=== PATIENT | female | born 1970 | race Hispanic/Latino ===

== ENCOUNTER 2024-05-06 20:57 | Inpatient (IN) | payer SELFPAY ==
[2024-05-06] MEDS ORDERED: Orphenadrine Citrate 60 MG/2 ML VIAL ONE (22:11)
[2024-05-06] MEDS ORDERED: Ketorolac Tromethamine 30 MG (1 mL) VIAL ONE (22:11)
[2024-05-07] MEDS ORDERED: Ondansetron PF 4 MG/2 ML Vial IVP PRN (00:06)
[2024-05-07] MEDS ORDERED: Acetaminophen 325 MG TAB PO PRN (00:06)
[2024-05-07] MEDS ORDERED: Morphine 2 MG/ML VIAL SLOW IVP PRN (00:09)
[2024-05-07] MEDS ORDERED: Dextrose 5% in Water 1,000 ML IV PRN (00:11)
[2024-05-07] MEDS ORDERED: Glucagon 1 MG/ML KIT IM PRN (00:11)
[2024-05-07] MEDS ORDERED: Dextrose 50% Abboject 50 ML SYRINGE SLOW IVP PRN (00:11)
[2024-05-07] MEDS ORDERED: HumaLOG 300 UNITS/3 ML VIAL SC PRN ×2 (00:11)
[2024-05-07 02:21] VITALS: BMI 24.4
[2024-05-07] MEDS: Lidocaine 4% Patch TD SCH (02:37)
[2024-05-07] MEDS: predniSONE 20 MG TAB PO SCH ×2 (02:37→08:33)
[2024-05-07] MEDS: Insulin Lispro 100 UNIT/ML 10 ML VIAL SC PRN ×2 (06:38→21:15)
[2024-05-07 06:49] LABS: #Basophils 0.03 10x3/uL (0.0-0.2); %Basophils 0.4 % (0.0-1.0); %Eosinophils 0.5 % (0.0-10.0); %Lymphocytes 21.5 % (21.0-51.0); %Monocytes 4.2 % (0.0-10.0); %Neutrophils 72.9 % (42.0-75.0); Hematocrit 39.4 % (36.0-47.0); Hemoglobin 13.3 g/dL (12.0-16.0); Mean Corpuscular HGB CONC 33.8 g/dL (32.0-36.0); Mean Corpuscular Hemoglobin 29.3 pg (27.0-31.0); Mean Corpuscular Volume 86.8 fL (78.0-98.0); Platelet Count 288 10x3/uL (130-400); RBC Distribution Width 12.6 % (11.5-14.5); Red Blood Cell (RBC) Count 4.54 mill/uL (4.20-5.40)
[2024-05-07 07:04] LABS: Anion Gap 12 mmol/L (10-20); BUN (Urea Nitrogen) 20 mg/dL (9.8-20.1); Calc. Creatinine Clearance 86 mL/min (70-130); Calcium 8.9 mg/dL (7.8-10.44); Carbon Dioxide 24 mmol/L (22-29); Chloride 102 mmol/L (98-107); Estimated GFR 105; Glucose 347 mg/dL (70-105); Potassium 4.5 mmol/L (3.5-5.1); Sodium 133 mmol/L (136-145)
[2024-05-07] MEDS: metFORMIN 500 MG TAB PO SCH (08:33)
[2024-05-07] MEDS: Heparin 5,000 UNITS/ML VIAL SC SCH (08:33)
[2024-05-07] MEDS: glipiZIDE 10 MG TAB PO SCH (08:33)
[2024-05-07] MEDS: Insulin Glargine 30 UNITS/0.3 ML VIAL SC SCH (08:33)
[2024-05-07 09:31] LABS: Bilirubin Negative (Negative); Blood, Urine Negative (Negative); Clarity Clear (Clear); Glucose, Urine (Dipstick) Greater than 1000 mg/dL (Negative); Ketone, Urine 20 mg/dL (Negative); Leukocyte Negative Leu/uL (Negative); Nitrite Negative (Negative); Protein, Urine (Dipstick) Negative (Neg-Trace); Specific Gravity, Urine 1.047 (1.002-1.036); Urobilinogen Normal mg/dL (Less than 2); pH, Urine 5.5 (5.0-9.0)
[2024-05-07 09:34] LABS: Bacteria/HPF Rare-Few HPF (None Seen)
[2024-05-07] MEDS: traMADol HCl 50 MG TAB PO PRN (09:54)
[2024-05-07] MEDS: Transdermal Patch Removal TOP SCH (11:39)
[2024-05-07] MEDS: HYDROcodone/Acetaminophen 5/325 mg Tablet PO PRN (17:14)
[2024-05-08 07:00] LABS: Anion Gap 15 mmol/L (10-20); BUN (Urea Nitrogen) 30 mg/dL (9.8-20.1); Calc. Creatinine Clearance 96 mL/min (70-130); Calcium 8.8 mg/dL (7.8-10.44); Carbon Dioxide 24 mmol/L (22-29); Chloride 102 mmol/L (98-107); Estimated GFR 108; Glucose 101 mg/dL (70-105); Potassium 3.7 mmol/L (3.5-5.1); Sodium 137 mmol/L (136-145)
[2024-05-09] MEDS: Insulin Glargine 30 UNITS/0.3 ML VIAL SC SCH (11:26)
[2024-05-10 11:44] VITALS: BP 129/76; TEMP 98.7
== END 2024-05-10 13:31 | disposition home or self-care (01) | DRG 552 ==
LOC: ERS 20:57 → T4-A 23:18 → OBSVTOIN 05-08 16:45
PROVIDERS: ADMIT Student in an Organized Health Care Education/Training Program; ATTEND Internal Medicine
DX: M48.061 Spinal stenosis, lumbar region without neurogenic claudication (principal); M54.16 Radiculopathy, lumbar region; E11.9 Type 2 diabetes mellitus without complications; M48.07 Spinal stenosis, lumbosacral region; Z79.4 Long term (current) use of insulin; Z79.899 Other long term (current) drug therapy; Z79.01 Long term (current) use of anticoagulants
CPT/HCPCS: 36415; 36416; 72148; 80048; 81001; 85025; J1644; J1815; J1885; J2360; J7512